=== PATIENT | female | born 2000 | race Hispanic/Latino ===

== ENCOUNTER 2025-10-15 11:56 | Outpatient (CLI) | payer OTHER | END 2025-10-15 11:57 | disposition home or self-care (01) | LOC: CSHULT 11:56 | PROVIDERS: ATTEND Family Medicine | DX: Z34.03 Encounter for supervision of normal first pregnancy, third trimester (principal); Z3A.29 29 weeks gestation of pregnancy | CPT/HCPCS: 76805 ==

== ENCOUNTER 2025-10-16 18:37 | Emergency (ER) | payer OTHER | END 2025-10-16 20:20 | disposition home or self-care (01) | LOC: CSHERS 18:37 | DX: O98.513 Other viral diseases complicating pregnancy, third trimester (principal); J11.1 Influenza due to unidentified influenza virus with other respiratory manifestations; O99.891 Other specified diseases and conditions complicating pregnancy; R59.0 Localized enlarged lymph nodes; Z3A.00 Weeks of gestation of pregnancy not specified | CPT/HCPCS: 87081; 87428; 87430; 99284 ==